=== PATIENT | male | born 1985 | race American Indian/Alaskan Native ===

== ENCOUNTER 2021-04-14 09:36 | Emergency (ER) | payer SELFPAY ==
[2021-04-14] MEDS ORDERED: Sodium Chloride 0.9% 10 ML Syringe FLUSH PRN (09:49)
--- NOTE | 2021-04-14 09:59 | EDM.PDOC ---
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 When he was discharged from there he was sent to [facility] for opiate addiction. No opiates were prescribed on discharge due to his addiction and so he has been getting ibuprofen and acetaminophen for his post-op pain. Apparently his BS have been running high and he is not getting relief of his pain from his non-opiates so he was sent via EMS to our ER from [facility]. EMS reports a foul odor coming from his wounds. There has not been a fever. Surgery at [facility] was about 2 weeks ago. Had some medial R ankle ulcer debridement at that time also. Reports being hospitalized in [place] in the past for high BS. Is currently on both ciprofloxacin and clindamycin. Would like to go back to [facility]. His last WBC ct at [facility] was 10K. No CRP was apparently done at [facility] as none were sent to us when we requested records from them. Patient says he checked himself into [facility], [facility] did not send him there. Has a clinic follow up scheduled regarding his foot surgery, does not know when this is when asked. Onset: Gradual Onset Date: 03/31/21 Duration: Week(s):, Getting Worse Location: Reports: Lower Extremity, Right Quality: Reports: Ache Severity: Moderate Improves with: Reports: None Worsens with: Reports: Other (time) Context: Reports: Other (See HPI) Associated Symptoms: Reports: No Other Symptoms. Denies: Fever/Chills, Malaise, Nausea/Vomiting Treatments [employer]AF[employer] CUSTODIAN: Reports: Acetaminophen, NSAIDS Right Foot Pain Score (Numeric/FACES): 10 - Related Data Allergies Allergy/AdvReac Type Severity Reaction Status Date / Time oxycodone Allergy Itching Verified 04/14/21 09:43 Home Meds: Home Meds Ciprofloxacin [Cipro XR 500 MG Tablet] 500 mg PO BID 04/14/21 [History] Clindamycin HCl 3 cap PO Q6HR 04/14/21 [History] Insulin Aspart [NovoLOG] 10 unit SQ TID 04/14/21 [History] Insulin Glarg,Human.Rec.Analog [Lantus Solostar] 30 unit SUBCUT DAILY 04/14/21 [History] Review of Systems - Review of Systems Review Of Systems: See Below Constitutional: Reports: No Symptoms Eyes: Reports: No Symptoms Ears: Reports: No Symptoms Nose: Reports: No Symptoms Mouth/Throat: Reports: No Symptoms Respiratory: Reports: No Symptoms Cardiovascular: Reports: No Symptoms GI/Abdominal: Reports: No Symptoms Genitourinary: Reports: No Symptoms Musculoskeletal: Reports: Foot Pain Skin: Reports: Wound (R foot and ankle) Neurological: Reports: Other (some degree of peripheral neuropathy) Psychiatric: Reports: No Symptoms ED EXAM, GENERAL - Physical Exam Exam: See Below Exam Limited By: No Limitations General Appearance: Alert, WD/WN, Mild Distress Eye Exam: Bilateral Eye: Normal Inspection Ears: Normal External Exam, Normal Canal, Hearing Grossly Normal Ear Exam: Bilateral Ear: Auricle Normal, Canal Normal Nose: Normal Inspection, No Blood Throat/Mouth: Normal Inspection, Normal Lips, Normal Oropharynx, Normal Voice, No Airway Compromise Head: Atraumatic, Normocephalic Neck: Normal Inspection Respiratory/Chest: No Respiratory Distress, Lungs Clear, Normal Breath Sounds, No Accessory Muscle Use Cardiovascular: Regular Rate, Rhythm, No Edema Extremities: Other (Has surgical wound across distal R foot from his 5 toe amputation. There is an open wound to the R medial ankle from his ulcer debridement. ) Neurological: Alert, Oriented, CN II-XII Intact, Normal Cognition Psychiatric: Normal Affect, Normal Mood Skin Exam: Warm, Dry, Normal Color, No Rash, Wound/Incision (surgical wounds of R foot and ankle) Course - Vital Signs Last Recorded V/S: Last Vital Signs Temp 36.8 C 04/14/21 09:37 Pulse 95 04/14/21 11:08 Resp 18 04/14/21 11:08 BP 146/86 H 04/14/21 11:08 Pulse Ox 100 04/14/21 11:08 - Orders/Labs/Meds Orders: Active Orders 24 hr Category Date Time Status Sodium Chloride 0.9% [Saline Flush] Med 04/14/21 09:49 Active 10 ml FLUSH ASDIRECTED PRN Saline Lock Insert [OM.PC] Routine Oth 04/14/21 09:49 Ordered Medication Orders Sodium Chloride (Sodium Chloride 0.9% 10 Ml Syringe) 10 ml FLUSH ASDIRECTED PRN PRN Reason: Keep Vein Open Last Admin: 04/14/21 10:10 Dose: 10 ml Documented by: PREILOR Labs: Laboratory Tests 04/14/21 04/14/21 04/14/21 Range/Units 09:50 09:57 09:57 WBC 11.3 H (4.5-11.0) K/uL RBC 4.10 L (4.30-5.90) M/uL Hgb 11.6 L (12.0-15.0) g/dL Hct 33.8 L (40.0-54.0) % MCV 82 (80-98) fL MCH 28 (27-31) pg MCHC 34 (32-36) % Plt Count 511 H (150-400) K/uL VBG pH 7.396 (7.350-7.450) Sodium 133 L (140-148) mmol/L Potassium 3.9 (3.6-5.2) mmol/L Chloride 96 L (100-108) mmol/L Carbon Dioxide 31 (21-32) mmol/L Anion Gap 9.9 (5.0-14.0) mmol/L BUN 20 H (7-18) mg/dL Creatinine 1.0 (0.8-1.3) mg/dL Est Cr Clr Drug Dosing 124.17 mL/min Estimated GFR (MDRD) > 60 (>60) Glucose 302 H (74-106) mg/dL Calcium 8.9 (8.5-10.1) mg/dL C-Reactive Protein 5.58 H (0.0-0.3) mg/dL Meds: Medications Generic Name Dose Route Start Last Admin Trade Name Freq PRN Reason Stop Dose Admin Sodium Chloride 10 ml 04/14/21 09:49 04/14/21 10:10 Sodium Chloride 0.9% 10 Ml Syringe FLUSH 10 ml ASDIRECTED PRN Administration Keep Vein Open Discontinued Medications Generic Name Dose Route Start Last Admin Trade Name Freq PRN Reason Stop Dose Admin Hydromorphone HCl 1 mg 04/14/21 10:00 04/14/21 10:08 Hydromorphone 1 Mg/Ml Syringe IVPUSH 04/14/21 10:01 1 mg ONETIME ONE Administration - Radiology Interpretation Free Text/Narrative:: R Foot X-ray-no osteomyelitis seen Departure - Departure Time of Disposition: 11:45 Disposition: Home, Self-Care 01 Condition: Fair Clinical Impression: Post-op pain - Discharge Information *PRESCRIPTION DRUG MONITORING PROGRAM REVIEWED*: No *COPY OF PRESCRIPTION DRUG MONITORING REPORT IN PATIENT TISH: No Referrals: PCP,None [Primary Care Provider] - Forms: ED Department Discharge Additional Instructions: Elevate your foot above your heart to reduce pain and swelling. Change your dressing on your foot twice daily. Call back to whoever you were going to see in hospital follow up and ask them if they can see you sooner due to your increased pain. Sepsis Event Note (ED) - Evaluation Sepsis Screening Result: No Definite Risk - Focused Exam Vital Signs: Vital Signs Temp Pulse Resp BP Pulse Ox 04/14/21 11:08 95 18 146/86 H 100 04/14/21 09:37 36.8 C 103 H 16 165/111 H 100 - My Orders Last 24 Hours: My Active Orders 04/14/21 09:49 Sodium Chloride 0.9% [Saline Flush] 10 ml FLUSH ASDIRECTED PRN Saline Lock Insert [OM.PC] Routine - Assessment/Plan Last 24 Hours: My Active Orders 04/14/21 09:49 Sodium Chloride 0.9% [Saline Flush] 10 ml FLUSH ASDIRECTED PRN Saline Lock Insert [OM.PC] Routine
[2021-04-14] MEDS ORDERED: HYDROmorphone 1 MG/ML Syringe IVPUSH ONE (10:00)
--- NOTE | 2021-04-14 11:13 | CR ---
FOOT RIGHT 3 views CLINICAL HISTORY:Postoperative pain FINDINGS:Patient has had distal foot amputation at the mid metatarsals. There is some soft tissue swelling around the surgical site. No definite bony destruction identified. There is postsurgical soft tissue changes. Impression: Status post recent distal foot amputation Soft tissue swelling in the midfoot.
[2021-04-14] MEDS ORDERED: Acetaminophen/HYDROcodone 325-5 MG Tab PO ONE (11:43)
== END 2021-04-14 12:30 | disposition home or self-care (01) ==
LOC: JP.ED 09:36
DX: G89.18 Other acute postprocedural pain (principal); Z88.5 Allergy status to narcotic agent; Z79.4 Long term (current) use of insulin
CPT/HCPCS: 36415; 73620; 80048; 82800; 85027; 86140; 96374; 99284; A9270; J1170